=== PATIENT | female | born 1940 | race Hispanic/Latino ===

== ENCOUNTER 2017-03-23 19:22 | Emergency (ER) | payer MEDICARE ==
--- NOTE | 2017-03-23 21:04 | Cat Scan Report ---
FINAL REPORT PROCEDURE: CT head without contrast. TECHNIQUE: Computerized tomography of the head was performed without contrast material. HISTORY: Patient fell, head injury. COMPARISON: No prior studies are available for comparison. FINDINGS: The ventricles are normal in size. The finn matter and white matter appear normal. There are no mass lesions. There is no intracranial hemorrhage. There are no signs of acute infarction. There are calcifications in the globus pallidus bilaterally. The calvarium appears intact. The mastoid air cells and paranasal sinuses are clear as far as visualized. IMPRESSION: No significant abnormality.
--- NOTE | 2017-03-23 21:07 | Cat Scan Report ---
FINAL REPORT PROCEDURE: CT facial bones without contrast. TECHNIQUE: Computerized tomography of the facial bones and soft tissues with axial, sagittal and coronal sections performed from the cranial aspect of the frontal sinuses to the caudal portion of the mandible without contrast material. HISTORY: Patient fell, facial injury. COMPARISON: No prior studies are available for comparison. FINDINGS: The facial bones appear intact. There are no fractures identified. The orbital contents appear normal. There are no blowout type injuries. There is mild mucosal thickening in both maxillary sinuses. The mastoid air cells are clear. The facial soft tissues are unremarkable. IMPRESSION: No evidence of a fracture.
[2017-03-23 21:09] LABS: Bilirubin,Urine NEG (Negative); Blood,Urine NEG (Negative); Ketones,Urine TR mg/dL (Negative); Leukocyte Esterase,Urine TR (Negative); Mucus,Urine FEW /HPF; Nitrite,Urine NEG (Negative); Protein,Urine <15 mg/dL mg/dL (Negative); Urobilinogen,Urine < 2.0 mg/dL (<2.0)
--- NOTE | 2017-03-23 21:10 | Cat Scan Report ---
FINAL REPORT PROCEDURE: CT cervical spine without contrast. TECHNIQUE: Computerized tomography of the cervical spine was performed from the skull base to T1 without contrast material. HISTORY: Patient fell, neck injury. COMPARISON: No prior studies are available for comparison. FINDINGS: The cervical vertebrae have normal height and satisfactory alignment. There are no fractures. There is no subluxation. There is moderately severe disc space narrowing from C3-4 through C6-7. There are small vertebral body osteophytes in the mid and lower cervical spine. The spinal canal appears adequately patent. There is fusion of several of the upper facet joints. The neural foramina appear adequately patent. The prevertebral soft tissues have normal thickness. IMPRESSION: Degenerative disease as described. No evidence of acute cervical spine injury.
--- NOTE | 2017-03-23 21:20 | Emergency Department Report ---
HPI - General Chief Complaint: Fall Time Seen by Provider: 03/23/17 20:13 - HPI HPI: This is a 76-year-old female presents to the emergency department after having a mechanical [place] at the mall. She bumped her foot on a high sidewalk and fell over hitting her face/head and her left knee and trying to brace herself with her hands. She complains of a abrasion/laceration over the right eyebrow, right wrist pain and left knee pain. The knee pain is what appears to be causing the most discomfort. She denies loss of consciousness. She is up-to-date with her tetanus vaccination. Her primary care doctor is Dr. Kong Winters. She has no past medical history and has a past surgical history of 2 hip replacements. The orthopedist who did her hip replacement was Dr. Catalino Beltran at [facility]. She did not take anything for symptoms prior to presentation. ED Past Medical Hx - Past Medical History Previous Medical History?: No - Surgical History Additional Surgical History: 2 hit replacements - Social History Smoking Status: Never Smoker Substance Use Type: Alcohol - Medications Home Medications: Home Medications Medication Instructions Recorded Confirmed Last Taken Type traMADol [Ultram] 50 mg PO Q6HR PRN #14 tablet 03/23/17 Unknown Rx ED Review of Systems ROS: Stated complaint: FALL/LACERATION Other details as noted in HPI Comment: All other systems reviewed and negative Constitutional: denies: chills, fever Eyes: denies: eye pain, eye discharge, vision change ENT: denies: ear pain, throat pain Respiratory: denies: cough, shortness of breath, wheezing Cardiovascular: denies: chest pain, palpitations Endocrine: no symptoms reported Gastrointestinal: denies: abdominal pain, nausea, diarrhea Genitourinary: denies: urgency, dysuria, discharge Musculoskeletal: arthralgia. denies: back pain Skin: other (laceration/abrasion). denies: rash, lesions Neurological: denies: weakness, numbness Physical Exam - Physical Exam Vital Signs: Vital Signs 03/23/17 03/23/17 19:54 20:01 Temperature 99.3 F Pulse Rate 80 Respiratory 12 12 Rate Blood Pressure 158/82 [Left] O2 Sat by Pulse 97 97 Oximetry Physical Exam: GENERAL: The patient is well-developed well-nourished. HEENT: Normocephalic. Pupils equal reactive to light bilaterally. Extraocular motions are intact. Patient has moist mucous membranes. NECK: Supple. Trachea is midline. CHEST/LUNGS: Clear to auscultation. There is no respiratory distress noted. HEART/CARDIOVASCULAR: Regular. There is no tachycardia. There is no gallop rub or murmur. ABDOMEN: Abdomen is soft, nontender. Patient has normal bowel sounds. There is no abdominal distention. SKIN: There is a small amount expanding hematoma over the right eye and on top of this is a nonbleeding, noninfected abrasion. There is nonpitting swelling to the anterior left knee. NEURO: The patient is awake, alert, and oriented. The patient is cooperative. The patient has no focal neurologic deficits. The patient has normal speech. MUSCULOSKELETAL: There is some mild tenderness to palpation to the right circumferential wrist. There is moderate to severe pain to the left anterior knee. Negative anterior and posterior drawer test. No laxity with valgus and varus stress. Decreased range of motion of the left knee secondary to pain. Radial pulses +2 over 4 bilaterally. ED Course Vital Signs 03/23/17 03/23/17 19:54 20:01 Temperature 99.3 F Pulse Rate 80 Respiratory 12 12 Rate Blood Pressure 158/82 [Left] O2 Sat by Pulse 97 97 Oximetry - Consultations Consultation #1: I spoke with the orthopedist on-call, Dr. Kang, who agrees with the plan for a knee immobilizer for the nondisplaced patellar fracture and says that the patient is able to bear some weight if necessary. 03/24/17 06:29 ED Medical Decision Making - Radiology Data Radiology results: report reviewed, image reviewed interpreted by me: X-ray of the left wrist does not show any fracture, dislocation or any acute process. X-ray of the left knee shows a nondisplaced patellar fracture. CT of the head does not show any acute process including no hemorrhage, mass, shift, diffuse edema or skull fracture. CT of the cervical spine show some arthritic changes but otherwise there is no fracture, subluxation or any acute process. CT of the facial bones did not show any fracture, dislocation or any acute process. - Medical Decision Making 76-year-old female presents after a mechanical fall in which she hit her left knee, her face/head and tried to brace herself with her hands. She also has wrist pain. She has an abrasion and not expected hematoma over the right eye. She has swelling and significant pain to the left knee. CTs of the head, facial bones and cervical spine were done that did not show any acute processes. An x-ray of the left knee shows a nondisplaced patellar fracture. The patient was placed in a left knee immobilizer and a right wrist splint. She already has an orthopedist for follow-up. She was given some crutches and will try to remain as nonweightbearing as possible to that left lower extremity. - Differential Diagnosis fracture, contusion, brain bleed, dislocation Critical Care Time: No Critical care attestation.: If time is entered above; I have spent that time in minutes in the direct care of this critically ill patient, excluding procedure time. ED Disposition Clinical Impression: Right wrist pain Left patella fracture Qualifiers: Encounter type: initial encounter Fracture type: closed Fracture morphology: unspecified fracture morphology Fracture alignment: nondisplaced Qualified Code( s): S82.002A - Unspecified fracture of left patella, initial encounter for closed fracture Fall Qualifiers: Encounter type: initial encounter Qualified Code(s): W19.XXXA - Unspecified fall, initial encounter Facial abrasion Qualifiers: Encounter type: initial encounter Qualified Code(s): S00.81XA - Abrasion of other part of head, initial encounter Disposition: DISCHARGED TO HOME OR SELFCARE Is pt being admited?: No Condition: Stable Instructions: Patellar Fracture (ED), Abrasion (ED), Fall Prevention (ED) Additional Instructions: Please follow-up with an orthopedist in the near future. Try to be nonweightbearing to that left lower extremity where you have the fracture of your kneecap. The abrasion over your right eyebrow will need to be cleaned with soap and water and then Dry. Return to the emergency department with any worsening of your symptoms or any acute distress. You've been prescribed a medication that is sedating. Therefore this medication cannot be mixed with alcohol, or taken prior to driving, working, or being responsible for children. Prescriptions: traMADol [Ultram] 50 mg PO Q6HR PRN #14 tablet PRN Reason: Pain Referrals: PRIMARY CAREMD [Primary Care Provider] - 3-5 Days PATI LEONARD MD [Staff Physician] - 3-5 Days Time of Disposition: 23:26
--- NOTE | 2017-03-23 21:48 | XRay Report ---
FINAL REPORT PROCEDURE: Left knee. TECHNIQUE: Portable AP and lateral views. HISTORY: Patient fell, left knee pain. COMPARISON: No prior studies are available for comparison. FINDINGS: There is a vertical lucency through the midportion of the patella on the lateral view. This is consistent with a nondisplaced fracture. The remaining bones appear intact. The joint spaces are satisfactory. There is a small knee effusion. IMPRESSION: Acute fracture of the patella.
[2017-03-23] MEDS ORDERED: MOTRIN PO ONE (21:50)
[2017-03-23 23:53] VITALS: BP 136/87
--- NOTE | 2017-03-24 10:41 | XRay Report ---
RIGHT WRIST 2 VIEWS: 03/23/17 19:55:00 CLINICAL: Fall and right wrist pain. FINDINGS: Moderate osteopenia. No fracture or dislocation. Arthritis at the scaphotrapezial joint. Mild radiocarpal joint arthritis. Normal soft tissues. IMPRESSION: Arthritis but no apparent traumatic injury.
== END 2017-03-23 23:54 | disposition home or self-care (01) ==
LOC: ED 19:22
DX: S82.002A Unspecified fracture of left patella, initial encounter for closed fracture (principal); S00.81XA Abrasion of other part of head, initial encounter; M25.531 Pain in right wrist; W18.30XA Fall on same level, unspecified, initial encounter; Y93.9 Activity, unspecified; Y92.9 Unspecified place or not applicable; Y99.9 Unspecified external cause status
CPT/HCPCS: 70450; 70486; 72125; 81001; 99285

== ENCOUNTER 2020-08-10 | Emergency (ER) | payer MEDICARE ==
--- NOTE | 2020-08-10 00:33 | Emergency Department Report ---
ED Fall HPI - General Chief Complaint: Fall Stated Complaint: RIGHT KNEE INJURY Time Seen by Provider: 08/10/20 00:22 Source: patient, EMS Mode of arrival: Stretcher - History of Present Illness Initial Comments: Patient is 80 years old female with history of hypertension. Patient presented to the ER via EMS from home for evaluation after a fall. Patient stated that she was trying to get into the her computer room when she tripped and fell. Patient is complaining of right knee pain and left facial pain. Patient also had laceration to the left eyebrow. Patient denied any loss of consciousness. She also denied any neck pain, chest pain, shortness of breath, abdominal pain, nausea or vomiting. Patient stated that she did not have any symptoms prior to the fall. MD Complaint: fall -: Sudden, minutes(s) Fall From: standing When Fall Occurred: just prior to arrival Fall Witnessed: yes, by family Place Fall Occurred: home Loss of Consciousness: none Prolonged Down Time?: no Symptoms Prior to Fall: none Location: head, face Location - Extremities: Right: Knee Severity: moderate Severity scale (0 -10): 4 Context: tripped/slipped Associated Symptoms: denies - Related Data Previous Rx's Medication Instructions Recorded Last Taken Type traMADoL [Ultram] 50 mg PO Q6HR PRN #14 tablet 03/23/17 Unknown Rx Naproxen [Naprosyn] 500 mg PO BID #14 tablet 08/10/20 Unknown Rx Allergies Allergy/AdvReac Type Severity Reaction Status Date / Time codeine Allergy Hives Verified 03/23/17 19:55 ED Review of Systems ROS: Stated complaint: RIGHT KNEE INJURY Other details as noted in HPI Comment: All other systems reviewed and negative Constitutional: denies: chills, fever Respiratory: denies: cough, shortness of breath, SOB with exertion Cardiovascular: denies: chest pain, palpitations Gastrointestinal: denies: abdominal pain, nausea Musculoskeletal: denies: back pain Neurological: denies: headache, weakness, numbness, paresthesias, confusion ED Past Medical Hx - Surgical History Additional Surgical History: 2 hit replacements - Social History Smoking Status: Never Smoker Substance Use Type: Alcohol - Medications Home Medications: Home Medications Medication Instructions Recorded Confirmed Last Taken Type traMADoL [Ultram] 50 mg PO Q6HR PRN #14 tablet 03/23/17 Unknown Rx Naproxen [Naprosyn] 500 mg PO BID #14 tablet 08/10/20 Unknown Rx ED Physical Exam - General Limitations: No Limitations General appearance: alert, in no apparent distress - Head Head exam: Present: other (1 cm laceration to the left eyebrow. Bleeding controlled.) - Eye Eye exam: Present: normal appearance, PERRL - ENT ENT exam: Present: normal exam, normal orophraynx, mucous membranes moist - Neck Neck exam: Present: normal inspection, full ROM. Absent: tenderness, meningismus, lymphadenopathy, thyromegaly - Respiratory Respiratory exam: Present: normal lung sounds bilaterally - Cardiovascular Cardiovascular Exam: Present: regular rate, normal rhythm, normal heart sounds - GI/Abdominal GI/Abdominal exam: Present: soft, normal bowel sounds. Absent: distended, tenderness, guarding, rebound, rigid, organomegaly, mass, bruit, pulsatile mass, hernia - Extremities Exam Extremities exam: Present: normal inspection, tenderness (Right knee tenderness and decreased range of motion.) - Back Exam Back exam: Present: normal inspection, full ROM. Absent: tenderness, CVA tenderness (R), CVA tenderness (L), muscle spasm, paraspinal tenderness, vertebral tenderness - Neurological Exam Neurological exam: Present: alert, oriented X3, CN II-XII intact, reflexes normal. Absent: motor sensory deficit - Psychiatric Psychiatric exam: Present: normal mood ED Course Vital Signs 08/10/20 00:33 Temperature 98.8 F Pulse Rate 83 Respiratory 96 H Rate Blood Pressure 147/81 [Right] - Laceration /Wound Repair Face Wound Location: face Wound's Depth, Shape: linear Wound Explored: clean Betadine Prep?: Yes Wound Repaired With: Steri-strips Sterile Dressing Applied?: Yes ED Medical Decision Making - Radiology Data Radiology results: report reviewed - Medical Decision Making Patient is 80 years old female with history of hypertension. Patient presented to the ER via EMS from home for evaluation after a fall. Patient stated that she was trying to get into the her computer room when she tripped and fell. Patient is complaining of right knee pain and left facial pain. Patient also had laceration to the left eyebrow. Patient denied any loss of consciousness. She also denied any neck pain, chest pain, shortness of breath, abdominal pain, nausea or vomiting. Patient stated that she did not have any symptoms prior to the fall. Patient remained stable in the ER. 1 cm laceration to the left eyebrow, Steri- Strips applied. CT brain, CT facial is negative for acute finding. Right knee x-ray showed a patellar fracture. Knee immobilizer applied to the right knee. Patient advised to follow-up with Dr. Noguera, orthopedics in the next 2 to 3 days. Patient received tetanus shot in the ER. Patient advised to follow-up with her primary doctor in the next 2 to 3 days and to return to the ER she develop any new symptoms. Critical care attestation.: If time is entered above; I have spent that time in minutes in the direct care of this critically ill patient, excluding procedure time. ED Disposition Clinical Impression: Fall, Head injury, Right patella fracture Disposition: TO HOME OR SELFCARE Is pt being admited?: No Condition: Stable Instructions: Laceration (ED), Fall Prevention for Older Adults (ED), Minor Head Injury (ED), Patellar Fracture (ED), Knee Immobilizer (ED) Prescriptions: Naproxen [Naprosyn] 500 mg PO BID #14 tablet Referrals: PRIMARY MD ANSHUL [Referring] - 3-5 Days IVIS NOGUERA MD [Staff Physician] - 3-5 Days
[2020-08-10 00:34] VITALS: BP 147/81
[2020-08-10] MEDS ORDERED: TETANUS,DIPHTHERIA TOXOID ADULT 0.5 ML INJ IM ONE (01:00)
--- NOTE | 2020-08-10 01:12 | XRay Report ---
RIGHT KNEE 3 VIEW(S) INDICATION / CLINICAL INFORMATION: right knee injury COMPARISON: None available. FINDINGS: BONES / JOINT(S): Acute nondisplaced incomplete fracture involving posterior aspect of mid patella on ly seen on lateral view. No lipohemarthrosis. No significant arthritis. SOFT TISSUES: No significant abnormality. ADDITIONAL FINDINGS: None. Signer Name: Ahsan Rowe MD Signed: 08/10/2020 1:08 AM Workstation Name: [id number]
[2020-08-10] MEDS ORDERED: ACETAMINOPHEN 325 MG TAB ONE (02:15)
[2020-08-10] MEDS ORDERED: ACETAMINOPHEN 325 MG TAB PO ONE (02:18)
--- NOTE | 2020-08-10 02:24 | Cat Scan Report ---
CT MAXILLOFACIAL WITHOUT CONTRAST INDICATION / CLINICAL INFORMATION: Fall with facial trauma. TECHNIQUE: All CT scans at this location are performed using CT dose reduction for ALARA by means of automated e xposure control. COMPARISON: None available. FINDINGS: FACIAL BONES: No fracture or other significant abnormality. PARANASAL SINUSES: No significant abnormality. ORBITS: No significant abnormality. VISUALIZED INTRACRANIAL STRUCTURES: No significant abnormality. ADDITIONAL FINDINGS: Moderate degenerative changes cervical spine IMPRESSION: 1. No significant abnormality. Signer Name: Ahsan Rowe MD Signed: 08/10/2020 2:20 AM Workstation Name: [id number]
--- NOTE | 2020-08-10 02:28 | Cat Scan Report ---
CT HEAD WITHOUT CONTRAST INDICATION / CLINICAL INFORMATION: Fall with head injury. TECHNIQUE: All CT scans at this location are performed using CT dose reduction for ALARA by means of automated e xposure control. COMPARISON: CT head 01/21/2017 FINDINGS: HEMORRHAGE: None. EXTRA-AXIAL SPACES: Normal in size and morphology for the patient's age. VENTRICULAR SYSTEM: Normal in size and morphology for the patient's age. 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 No acute territorial infarct. MIDLINE SHIFT OR HERNIATION: None. CEREBELLUM / BRAINSTEM: No significant abnormality. ORBITS: Normal as visualized. SOFT TISSUES of HEAD: No significant abnormality. CALVARIUM: No significant abnormality. PARANASAL SINUSES / MASTOID AIR CELLS: Normal as visualized. ADDITIONAL FINDINGS: None. IMPRESSION: 1. No acute intracranial abnormality. Signer Name: Ahsan Rowe MD Signed: 08/10/2020 2:23 AM Workstation Name: [id number]
--- NOTE | 2020-08-10 04:45 | Cat Scan Report ---
CT lower extremity RT wo con INDICATION: Questionable Patella fracture from fall.. TECHNIQUE: All CT scans at this location are performed using CT dose reduction for ALARA by means of automated e xposure control. COMPARISON: Right knee x-ray 08/10/2020 FINDINGS: Nondisplaced fracture of the superior lateral third patella extending into the lateral patellar facet axial image 37 and coronal image 11. No other fracture. No joint effusion or lipohemarthrosis. Moder ate prepatellar soft tissue swelling joint space is well preserved IMPRESSION: 1. Nondisplaced fracture of the patella with moderate prepatellar soft tissue swelling Signer Name: Ahsan Rowe MD Signed: 08/10/2020 4:40 AM Workstation Name: [id number]
[2020-08-10] MEDS ORDERED: ONDANSETRON 4 MG/2 ML INJ IM ONE (05:04)
[2020-08-10] MEDS ORDERED: MORPHINE 4 MG/1 ML INJ IM ONE (05:04)
== END 2020-08-10 05:36 | disposition home or self-care (01) ==
LOC: ED
DX: S82.001A Unspecified fracture of right patella, initial encounter for closed fracture (principal); S09.90XA Unspecified injury of head, initial encounter; Z79.899 Other long term (current) drug therapy; Z88.6 Allergy status to analgesic agent; Z98.890 Other specified postprocedural states; W18.30XA Fall on same level, unspecified, initial encounter; Y93.89 Activity, other specified; Y92.009 Unspecified place in unspecified non-institutional (private) residence as the place of occurrence of the external cause; Y99.8 Other external cause status
CPT/HCPCS: 70450; 70486; 90471; 90714